=== PATIENT | female | born 1970 | race Caucasian/White ===

== ENCOUNTER → 2017-08-08 | Outpatient (CLI) | payer OTHER | LOC: M.ULTRA 15:00 | DX: M77.31 Calcaneal spur, right foot (principal); M25.471 Effusion, right ankle ==

== ENCOUNTER → 2017-10-29 | Outpatient (CLI) | payer OTHER | LOC: M.RAD 15:28 | DX: M54.12 Radiculopathy, cervical region (principal); M25.78 Osteophyte, vertebrae; M25.511 Pain in right shoulder ==

== ENCOUNTER → 2018-06-13 | Outpatient (CLI) | payer OTHER | LOC: M.RAD 15:40 | DX: R06.02 Shortness of breath (principal); M51.34 Other intervertebral disc degeneration, thoracic region ==